=== PATIENT | female | born 1935 | race Caucasian/White ===

== ENCOUNTER 2016-03-23 08:56 | Inpatient (IN) | payer MEDICARE, OTHER ==
[2016-03-09 12:32] VITALS: Ht 154.9 cm; Wt 78.5 kg
[2016-03-10 07:18] VITALS: BP_SYST 132; RESP 20; TEMP 97.6
[2016-03-23] VITALS (30 sets, daily range): BP systolic 104–172; RESP 14–20; TEMP 94.6–98
[~2016-03-23] VITALS: Ht 154.9 cm; Wt 78.5 kg
[2016-03-23] MEDS ORDERED: CEFAZOLIN 2,000 MG in SODIUM CHLORIDE 0.9% 100 ML IV ONE (09:00)
[2016-03-23] MEDS ORDERED: LACT RINGERS 1,000 ML IV SCH (09:25)
[2016-03-23] MEDS ORDERED: LIDOCAINE 1% BUFFERED 1 ML SYR INTRADERM PRN (09:25)
[2016-03-23] MEDS ORDERED: GLYCOPYRROLATE 0.2 MG/ML VIAL IV ONE ×2 (09:25→10:20)
[2016-03-23] MEDS ORDERED: MIDAZOLAM 2 MG/2 ML INJ IV ONE ×2 (09:25→11:00)
[2016-03-23] MEDS ORDERED: MEPERIDINE 25 MG/ML IV ONE (09:25)
[2016-03-23] MEDS ORDERED: MEPERIDINE 25 MG/ML ONE (10:08)
[2016-03-23] MEDS ORDERED: BACITRACIN 50,000 UNITS INJ IRRIG ONE (10:12)
[2016-03-23] MEDS ORDERED: SUCCINYLCHOLINE 20 MG/ML VL IV ONE (10:20)
[2016-03-23] MEDS ORDERED: NEOSTIGMINE 10 MG/10 ML VIAL IV ONE (10:20)
[2016-03-23] MEDS ORDERED: ROCURONIUM 50 MG VIAL IV ONE (10:20)
[2016-03-23] MEDS ORDERED: PROPOFOL 20 ML VIAL IV ONE (10:20)
[2016-03-23] MEDS ORDERED: LIDOCAINE 2% SYR 5 ML IV ONE (10:20)
[2016-03-23] MEDS ORDERED: DEXAMETHASONE 4 MG/ML VIAL IV ONE (10:20)
[2016-03-23] MEDS ORDERED: ONDANSETRON 4 MG VIAL IV PUSH ONE (10:20)
[2016-03-23] MEDS ORDERED: FENTANYL 100 MCG/2 ML AMP IV ONE (10:20)
[2016-03-23] MEDS ORDERED: MIDAZOLAM 2 MG/2 ML INJ ONE (10:50)
[2016-03-23] MEDS ORDERED: MORPHINE 4 MG/ML SYR IV PRN ×2 (11:40→13:25)
[2016-03-23] MEDS ORDERED: DILAUDID 1 MG/ML AMP IV PRN (11:40)
[2016-03-23] MEDS ORDERED: OXYCODONE 5 MG TAB PO PRN (11:40)
[2016-03-23] MEDS ORDERED: ONDANSETRON 4 MG VIAL IV PRN ×2 (11:40→13:25)
[2016-03-23] MEDS ORDERED: MEPERIDINE 25 MG/ML IV PRN (11:40)
[2016-03-23] MEDS ORDERED: MORPHINE 2 MG/ML SYR IV PRN ×2 (11:40→13:25)
[2016-03-23] MEDS ORDERED: D5-1/2-NS W/KCL 20MEQ/L 1,000 ML IV SCH (13:25)
[2016-03-23] MEDS ORDERED: MAG HYDROX 30 ML UDC PO PRN (13:25)
[2016-03-23] MEDS ORDERED: SALINE FLUSH 10 ML FLUSH PRN (13:25)
[2016-03-23] MEDS ORDERED: ONDANSETRON 4 MG TAB PO PRN (13:25)
[2016-03-23] MEDS ORDERED: KETOROLAC 15 MG/ML VIAL IV PRN (13:25)
[2016-03-23] MEDS ORDERED: ZOLPIDEM 5 MG TAB PO PRN (13:25)
[2016-03-23] MEDS ORDERED: BUPIVACA/EPI 0.5% 50ML EPIDURAL ONE (13:36)
[2016-03-23] MEDS: CEFAZOLIN 2,000 MG in SODIUM CHLORIDE 0.9% 100 ML IV SCH (17:56)
[2016-03-23] MEDS: SENNA 8.6 MG TAB PO SCH (21:27)
[2016-03-23] MEDS: DOCUSATE SOD 100 MG CAP PO SCH (21:27)
[2016-03-23] MEDS: SALINE FLUSH 10 ML FLUSH SCH (21:28)
[2016-03-24] MEDS: CEFAZOLIN 2,000 MG in SODIUM CHLORIDE 0.9% 100 ML IV SCH ×3 (00:39→11:38)
[2016-03-24 03:54] VITALS: BP_SYST 145; RESP 16; TEMP 98
[2016-03-24] MEDS ORDERED: SODIUM CHLORIDE 0.9% FLUSH BAG 500 ML IV SCH (06:00)
[2016-03-24 07:41] VITALS: BP_SYST 142; RESP 16; TEMP 97.8
[2016-03-24] MEDS: SENNA 8.6 MG TAB PO SCH (08:48)
[2016-03-24] MEDS: DOCUSATE SOD 100 MG CAP PO SCH (08:48)
[2016-03-24] MEDS: SALINE FLUSH 10 ML FLUSH SCH (08:48)
[2016-03-24] MEDS ORDERED: POLYETHYLENE GLYCOL 17 GM PACKET PO SCH (09:00)
[2016-03-24] MEDS ORDERED: MAG HYDROX 30 ML UDC PO SCH (09:00)
[2016-03-24 10:38] VITALS: BP_SYST 142; RESP 16; TEMP 97.8
[2016-03-24 11:01] VITALS: BP_SYST 154; RESP 20; TEMP 98.2
[2016-03-24] MEDS ORDERED: BISACODYL 10 MG SUPP RECTAL PRN (15:10)
== END 2016-03-24 12:46 | disposition home health service (06) | DRG 483 ==
LOC: ENRESERVDT → ENRESERVTM → ENPENDDIS 08:56 → OSECA 08:56 → 2NO 14:18
PROVIDERS: ADMIT Internal Medicine; ATTEND Internal Medicine
PROC: 0RRK00Z Replacement of Left Shoulder Joint with Reverse Ball and Socket Synthetic Substitute, Open Approach (ICD-10-PCS; principal; 2016-03-24)
PROC: 3E0T3BZ Introduction of Anesthetic Agent into Peripheral Nerves and Plexi, Percutaneous Approach (ICD-10-PCS; 2016-03-24)
DX: M19.012 Primary osteoarthritis, left shoulder (principal); I10 Essential (primary) hypertension; E78.5 Hyperlipidemia, unspecified; F41.9 Anxiety disorder, unspecified
CPT/HCPCS: 80048; 85014; 85018; 86850; 86900; 86901; 94762; 94799

== ENCOUNTER 2016-03-24 16:34 | Emergency (ER) | payer MEDICARE, OTHER ==
[2016-03-24] MEDS ORDERED: DILAUDID 1 MG/ML AMP ONE (17:35)
== END 2016-03-24 18:33 | disposition home or self-care (01) ==
LOC: ER 16:34
DX: G89.18 Other acute postprocedural pain (principal); M25.512 Pain in left shoulder; Z96.612 Presence of left artificial shoulder joint; I10 Essential (primary) hypertension; Z87.891 Personal history of nicotine dependence
CPT/HCPCS: 96372; 99283; J1170